=== PATIENT | female | born 1965 | race African-American/Black ===

== ENCOUNTER → 2016-11-27 | Outpatient (CLI) | payer MEDICAID | LOC: FIMAGING 14:10 | PROVIDERS: ATTEND Family Medicine | DX: Z12.31 Encounter for screening mammogram for malignant neoplasm of breast (principal); Z80.3 Family history of malignant neoplasm of breast | CPT/HCPCS: G0202 ==

== ENCOUNTER 2017-02-22 14:03 | Emergency (ER) | payer MEDICAID ==
[2017-02-22] MEDS ORDERED: IBUPROFEN 600 MG TAB PO ONE (16:07)
--- NOTE | 2017-02-22 16:09 | EDPHY ---
H & P Time Seen by Provider: 02/22/17 15:33 HPI/ROS: CHIEF COMPLAINT: Left shoulder and arm pain HISTORY OF PRESENT ILLNESS: Patient had symptoms starting about 2 weeks ago. She describes pain in her upper arm and left shoulder which is worse with abduction of her arm. Presents today because it is affecting her normal activities of daily living. She can't reach behind her back to tuck a shirt in , or reach up over her head to wash her hair. Pain is mild at rest but severe with external rotation or abduction. It radiates from her shoulder down to just above her elbow but is not involving her forearm or hand. No weakness or numbness in the hand or forearm. No neck pain and no fever or chills. REVIEW OF SYSTEMS: Eye: no change in vision ENT: No symptoms Cardiac: no chest pain Pulmonary: no cough or SOB Abdomen: No abdominal pain Musculoskeletal: HPI Skin: no rash or zoster Neuro: She has an ongoing issue with migraines, unchanged. No weakness or numbness in the left hand. Constitutional: no fever : no urinary symptoms A comprehensive 10 point review of systems is otherwise negative aside from elements mentioned in the history of present illness. 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 Eyes: No scleral icterus. ENT, Mouth: Normal mucous membranes. Respiratory: Normal respiratory effort, breath sounds equal, lungs are clear to auscultation. Cardiovascular: Regular rate and rhythm. No murmur. Normal left radial pulse. Gastrointestinal: Abdomen is soft and non tender. Neurological: Alert and oriented x3. Normally conversant. Face symmetric, normal movement and sensation in all extremities. 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 Skin: Warm and dry, no rashes. Musculoskeletal: No spinal tenderness. Full range of motion of the left elbow wrist and hand. When I passively abduct her left shoulder she has pain. When I placed her left hand in the small of her back she has pain in the left shoulder. I can externally and internally rotate her shoulder and flex and extend her elbow without any symptoms. She does have some tenderness to palpation over the deltoid muscle and over the left AC but no clavicular tenderness. Psychiatric: Not agitated. Emergency Department course/MDM: Patient has left shoulder and upper arm pain which is worse with movement especially abduction and I discussed with her differential including but not limited to labrum or rotator cuff problem. I think septic joint or ACS or vascular problem such as dissection, or spinal cord impingement are all less likely. Arterial or venous clot are less likely. Compartments soft. 1645: Results discussed, orthopedic follow-up. Sling, small amount oral pain medication. Smoking Status: Never smoked Constitutional: Initial Vital Signs Temperature (C) 36.3 C 02/22/17 14:15 Heart Rate 75 02/22/17 14:15 Respiratory Rate 16 02/22/17 14:15 Blood Pressure 160/101 H 02/22/17 14:15 O2 Sat (%) 95 02/22/17 14:15 O2 Delivery Mode Room Air Allergies/Adverse Reactions: No Known Allergies Allergy (Verified 10/10/15 19:27) Home Medications: Medication Instructions Recorded Albuterol [Proventil Inhaler HFA 2 puffs IH Q4 PRN 06/02/14 (RX)] CYCLOBENZAPRINE HCL [Flexeril] 5 mg PO HS 06/02/14 Cholecalciferol Vit D3 [Vitamin D3 1,000 units PO HS 06/02/14 (OTC)] Fluticasone Nasal [Flonase Nasal 2 sprays NASAL DAILY PRN 06/02/14 Center (RX)] LORazepam [Ativan] 0.5 mg PO DAILY PRN 06/02/14 Topiramate [Topamax] 100 mg PO HS 06/02/14 Zolpidem Tartrate [Ambien 10 mg] 10 mg PO HS 06/02/14 buPROPion [Wellbutrin 100mg (RX)] 200 mg PO DAILY 06/02/14 traZODone [traZODONE 100MG (RX)] 200 mg PO HS 06/02/14 Diltiazem HCl [Cartia Xt] 120 mg PO DAILY 06/25/15 Fluticasone Nasal [Flonase Nasal 2 sprays NASAL DAILY #1 mdi 06/25/15 Center (RX)] Fluticasone/Salmeter 100/50Mcg 1 puffs IH BID 06/25/15 [Advair] Albuterol Sulfate [ALBUTEROL 0.63 mg IH Q4-6PRN PRN #30 vial.neb 10/10/15 SULFATE] GABAPENTIN 02/22/17 Zoloft 02/22/17 oxyCODONE/APAP 5/325 [Percocet] 1 - 2 tab PO Q4-6PRN PRN #11 tab 02/22/17 Medical Decision Making - Diagnostics Imaging Results: Imaging Impressions Shoulder X-Ray 02/22/17 15:47 Impression: Negative left shoulder radiographs. - Data Points Medications Given: Discontinued Medications Ibuprofen (Motrin) 600 mg PO EDNOW ONE Stop: 02/22/17 16:08 Last Admin: 02/22/17 16:10 Dose: 600 mg Departure - Departure Disposition: Home, Routine, Self-Care Clinical Impression: Left shoulder pain Qualifiers: Chronicity: acute Qualified Code(s): M25.512 - Pain in left shoulder Condition: Good Instructions: Oxycodone/Acetaminophen (By mouth), Shoulder Pain (ED) Referrals: Kathy Bentley DO [Primary Care Provider] - As per Instructions Mildred Shoemaker MD [Medical Doctor] - As per Instructions (Please see Orthopedics within the next week.) Prescriptions: oxyCODONE/APAP 5/325 [Percocet] 1 - 2 tab PO Q4-6PRN PRN #11 tab PRN Reason: Pain
[2017-02-22 17:12] VITALS: BP 171/101; PULSE 63; RESP 18; TEMP 98.2; O2SAT 96
== END 2017-02-22 17:13 | disposition home or self-care (01) ==
DX: M25.512 Pain in left shoulder (principal); J45.909 Unspecified asthma, uncomplicated
CPT/HCPCS: A4565

== ENCOUNTER → 2017-04-05 | Outpatient (CLI) | payer MEDICAID | LOC: FIMAGING 13:24 | PROVIDERS: ATTEND Physician Assistant | DX: M75.112 Incomplete rotator cuff tear or rupture of left shoulder, not specified as traumatic (principal); M19.012 Primary osteoarthritis, left shoulder; M75.52 Bursitis of left shoulder; M25.412 Effusion, left shoulder ==

== ENCOUNTER → 2017-05-06 | Outpatient (CLI) | payer MEDICAID ==
[~2017-05-06] MED LIST: DEPO METHYLPREDNISOLONE 80 MG/ML SDV ONE; IOPAMIDOL (ISOVUE 370) 100 ML BTL IV ONE; IOPAMIDOL (ISOVUE-370) 150 ML BTL IV ONE; LIDOCAINE 1% 300 MG/30 ML SDV ONE; ROPIVACAINE HCL 150 MG/30 ML INJ ONE
== END ==
LOC: FIMAGING 12:49
PROVIDERS: ATTEND Physician Assistant
PROC: 3E0U3BZ Introduction of Anesthetic Agent into Joints, Percutaneous Approach (ICD-10-PCS; principal; 2017-05-06)
PROC: 3E0U33Z Introduction of Anti-inflammatory into Joints, Percutaneous Approach (ICD-10-PCS; principal; 2017-05-06)
DX: M19.012 Primary osteoarthritis, left shoulder (principal)
CPT/HCPCS: J1040; J2795; Q9967

== ENCOUNTER 2017-08-04 07:58 | Emergency (ER) | payer MEDICAID ==
[2017-08-04] MEDS ORDERED: D5W LR 1,000 ML IV ONE (08:19)
[2017-08-04] MEDS ORDERED: METOCLOPRAMIDE 10 MG/2 ML VIAL IVP ONE (08:19)
--- NOTE | 2017-08-04 08:21 | EDPHY ---
H & P Stated Complaint: Sick since ;n/v/diarrhea Time Seen by Provider: 08/04/17 08:08 - Personal History LMP (Females 10-55): 8-14 Days Ago Current Tetanus Diphtheria and Acellular Pertussis (TDAP): Yes Tetanus Vaccine Date: 2015 - Medical/Surgical History Hx Asthma: Yes Hx Chronic Respiratory Disease: No Hx Diabetes: No Hx Cardiac Disease: No Hx Renal Disease: No Hx Cirrhosis: No Hx Alcoholism: No Hx HIV/AIDS: No Hx Splenectomy or Spleen Trauma: No Other PMH: migraines. asthma. obesity. sleep apnea. arrhythmias - Social History Smoking Status: Never smoked Constitutional: Initial Vital Signs Temperature (C) 37.5 C 08/04/17 07:59 Heart Rate 88 08/04/17 07:59 Respiratory Rate 18 08/04/17 07:59 Blood Pressure 164/109 H 08/04/17 07:59 O2 Sat (%) 94 08/04/17 07:59 O2 Delivery Mode Room Air Allergies/Adverse Reactions: No Known Allergies Allergy (Verified 08/04/17 07:58) Home Medications: Medication Instructions Recorded Albuterol Sulfate [Ventolin Hfa] 18 gm IH 08/04/17 Fluticasone/Salmeterol [Advair Hfa 12 gm IH 08/04/17 115-21 Mcg Inhaler] Gabapentin [Neurontin 300 MG (*)] 300 mg PO HS 08/04/17 Sertraline HCl [Zoloft 25mg (*)] 25 mg PO DAILY 08/04/17 Topiramate [Topamax 100MG (*)] 100 mg PO 08/04/17 Topiramate [Topamax] 25 mg PO 08/04/17 Zolpidem Tartrate [Ambien 5MG (*)] 5 mg PO HS 08/04/17 buPROPion [Wellbutrin] 100 mg PO 08/04/17 Medical Decision Making ED Course/Re-evaluation: CHIEF COMPLAINT: Vomiting, diarrhea HISTORY OF PRESENT ILLNESS: The patient is a 51 y/o female with a history of migraines and asthma arriving with her family member complaining of persistent vomiting and diarrhea since Saturday, 5 days ago. She cannot identify an obvious precipitating event for her symptoms. She estimates 5-6 episodes of diarrhea daily and reports vomiting directly after ingestion of even small amounts of water. She denies associated abdominal pain, fever, chest pain, dyspnea. She does have a mild headache and feels thirsty and hungry. No recent oral antibiotics and no abdominal surgical history. REVIEW OF SYSTEMS: A 10 point review of systems was performed and is negative with the exception of the elements mentioned in the history of present illness. PHYSICAL EXAM: HR, BP, O2 Sat, RR. Temp noted General Appearance: Alert, well hydrated, appropriate, obese, and non-toxic appearing. Head: Atraumatic without scalp tenderness or obvious injury Eyes: Pupils equal, round, reactive to light and accommodation, EOMI, no trauma , no injection. Nose: Atraumatic, no rhinorrhea, clear. Throat: There is no erythema or exudates, no lesions, normal tonsils, mucus membranes dry. Neck: Supple Respiratory: No retractions, no distress, no wheezes, and no accessory muscle use. Lungs are clear to auscultation bilaterally. Cardiovascular: Regular rate and rhythm, no murmurs, rubs, or gallops.Good capillary refill all extremities. Gastrointestinal: Abdomen is soft, obese, non-tender, non-distended, no masses, no rebound, no guarding, no peritoneal signs. Musculoskeletal: Normal active ROM of all extremities, atraumatic. Neurological: Alert, appropriate, and interactive. The patient has non-focal cranial nerves, motor, sensory, and cerebellar exam. Skin: No rashes, good turgor, no nodules on palpation. PAST MEDICAL HISTORY: Chronic migraines, asthma, sleep apnea PAST SURGICAL HISTORY: No abdominal surgeries SOCIAL HISTORY: Family member at bedside. 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 Lives in [place]. Prior medical records reviewed including ED visit 02/22/17 for shoulder pain. DIFFERENTIAL DIAGNOSIS: The differential diagnosis for the patient's nausea and vomiting included but was not limited to gastroenteritis, gastritis, appendicitis, and medication side effect. MEDICAL DECISION MAKING: This is a 51 y/o female who presents with a 5-day history of persistent nausea, vomiting, and diarrhea. She is unable to keep water down at this time and her mucous membranes are dry. Her abdomen is benign and she is afebrile. Plan for symptomatic management with IV, 2L IV LR, and 10mg IV Reglan. Patient is tolerating PO fluids well and feels improved enough to return home on reassessment. She will be discharged with script for Zofran and standard gastroenteritis care and follow up instructions. Return precautions discussed. She is comfortable with this plan. - Data Points Medications Given: Lactated Ringer's (Lr) 1,000 mls @ 500 mls/hr IV EDNOW ONE Stop: 08/04/17 10:26 Last Admin: 08/04/17 08:28 Dose: 1,000 mls Lactated Ringer's (Lr) 1,000 mls @ 500 mls/hr IV EDNOW ONE Stop: 08/04/17 10:27 Last Admin: 08/04/17 08:29 Dose: 1,000 mls Discontinued Medications Metoclopramide HCl (Reglan Injection) 10 mg IVP EDNOW ONE Stop: 08/04/17 08:20 Last Admin: 08/04/17 08:29 Dose: 10 mg Ondansetron HCl (Zofran Odt) 4 mg PO EDNOW ONE Stop: 08/04/17 09:20 Last Admin: 08/04/17 09:21 Dose: 4 mg Departure - Departure Disposition: Home, Routine, Self-Care Clinical Impression: Gastroenteritis, Dehydration Condition: Good Instructions: Dehydration (ED), Gastroenteritis (ED) Additional Instructions: 1. Increase fluid intake as tolerated. 2. Use Zofran as prescribed as needed for nausea and vomiting. 3. Follow up with your primary care provider for unimproved symptoms over the next few days. 4. Return to the ED for inability to keep water down, confusion, severe pain, or other worsening of condition. Referrals: Kathy Bentley, [Primary Care Provider] - As per Instructions Report Scribed for: Ralf Flores Report Scribed by: Arielle Wise Date of Report: 08/04/17 Time of Report: 08:21
[2017-08-04] MEDS ORDERED: LR 1,000 ML IV ONE ×2 (08:27→08:28)
[2017-08-04] MEDS ORDERED: D5W LR 1,000 ML IV SCH (08:30)
[2017-08-04] MEDS ORDERED: ONDANSETRON DISINTEGRATING 4 MG TAB PO ONE (09:19)
[2017-08-04] MEDS ORDERED: ONDANSETRON DISINTEGRATING 4 MG TAB ONE (09:20)
[2017-08-04] MEDS ORDERED: ONDANSETRON 4MG PREPACK#2 BTL TAKEHOME ONE (09:24)
[2017-08-04 09:45] VITALS: BP 144/79
== END 2017-08-04 09:45 | disposition home or self-care (01) ==
DX: K52.9 Noninfective gastroenteritis and colitis, unspecified (principal); E86.0 Dehydration; J45.909 Unspecified asthma, uncomplicated
CPT/HCPCS: 96374; J2765

== ENCOUNTER 2017-12-04 | Day surgery (SDC) | payer MEDICAID | END 2017-12-04 13:21 | disposition home or self-care (01) | PROC: 0JPT02Z Removal of Monitoring Device from Trunk Subcutaneous Tissue and Fascia, Open Approach (ICD-10-PCS; principal; 2017-12-04) | DX: R55 Syncope and collapse (principal) | CPT/HCPCS: J2250; J3010 ==

== ENCOUNTER 2018-09-15 11:44 | Emergency (ER) | payer MEDICAID | END 2018-09-15 14:30 | disposition home or self-care (01) ==